=== PATIENT | male | born 1945 | race Hispanic/Latino ===

== ENCOUNTER → 2019-06-19 | Outpatient (CLI) | payer MEDICARE ==
[~2019-06-19] MED LIST: ASPIRIN81 MG PO; ATORVASTATIN CA20 MG PO; DEXILANT60 MG PO; FLOMAX0.4 MG PO; LOSARTAN POTASS50 MG PO; NORCO 10-325 T1 EACH PO; REGADENOSON 0.4 MG/5 ML SYR IV ONE
--- NOTE | 2019-06-19 22:46 | Myoview Stress Test ---
DATE OF STUDY: 06/19/2019 08:08:00 Stress Test - Treadmill ONLY PROCEDURE TITLE: Nuclear stress report. INDICATION: Chest pain. PROCEDURE IN DETAIL: Pharmacologic stress testing was performed with regadenoson per protocol. The heart rate was 47 beats per minute at rest and increased to 103 beats per minute during regadenoson infusion. The resting blood pressure was 149/81 mmHg and increased to 195/96 mmHg, which is a normal response. The resting electrocardiogram demonstrated sinus bradycardia with frequent PVCs. There were no ST-segment changes suggestive of myocardial ischemia. Myocardial perfusion imaging was performed at rest following the injection of 11 mCi of tetrofosmin. At peak pharmacologic effect, the patient was injected with 33 mCi of tetrofosmin. Gated post-stress tomographic imaging was performed. FINDINGS: The overall quality of study is fair. Left ventricular cavity is noted to be normal size on the rest and stress studies. SPECT images demonstrate homogeneous tracer distribution throughout the myocardium. Gated SPECT imaging reveals normal myocardial thickening and wall motion. Overall, left ventricular ejection fraction was calculated to be 74%. IMPRESSION: Myocardial perfusion imaging is normal. Overall, left ventricular systolic function was normal without regional wall motion abnormalities. Maricel Vides MD ABS/MODL /[id number]
== END ==
LOC: NM 08:01
PROVIDERS: ATTEND Internal Medicine Interventional Cardiology
DX: I20.8 Other forms of angina pectoris (principal)
CPT/HCPCS: 78452; 93017; A9502; J2785

== ENCOUNTER 2019-12-29 11:52 | Emergency (ER) | payer MEDICARE, OTHER ==
[~2019-12-29] VITALS: Ht 170.2 cm; Wt 109.8 kg
[~2019-12-29 11:52] MED LIST changes: -REGADENOSON 0.4 MG/5 ML SYR IV ONE
--- NOTE | 2019-12-29 13:16 | Emergency Department Note ---
History of Present Illnes History of Present Illness Chief Complaint: COVID PUI History of Present Illness This is a 74 year old male arrives to the ED with complaints of a cough with phlegm. Patient states symptoms have been present for several days intermittent. Patient denies any shortness of breath. Historian: Patient Arrival Mode: Car Counsel Required: No Onset (how long ago): day(s) Severity: mild Onset quality: gradual Duration (how long): day(s) Timing of current episode: intermittent Progression: waxing and waning Chronicity: new Past Medical/Family History Physician Review I have reviewed the patient's past medical and family history. Any updates have been documented here. Past Medical History Recent Fever: No Clinical Suspicion of Infectio: No New/Unexplained Change in Ment: No Past Medical History: Hypertension, Osteoarthritis Past Surgical History: None Social History Smoking Cessation: Never Smoker Counseling Performed: No Alcohol Use: None Any Illegal Drug Use: No TB Exposure/Symptoms: No Physically hurt or threatened: No Other Any Pre-Existing Lines (PICC,: No Is patient up to date on immun: No Last Flu: OOD Last Pneumovax: OOD Review of Systems Review of Systems Constitutional: Reports no symptoms EENTM: Reports no symptoms Cardiovascular: Reports no symptoms Respiratory: Reports as per HPI, Reports pain with cough Gastrointestinal: Reports no symptoms Genitourinary: Reports no symptoms Musculoskeletal: Reports no symptoms Integumentary: Reports no symptoms Neurological: Reports no symptoms Psychological: Reports no symptoms Endocrine: Reports no symptoms Hematological/Lymphatic: Reports no symptoms Physical Exam Related Data Allergies: Coded Allergies: No Known Drug Allergies (Unverified Allergy, 02/08/15) Triage Vital Signs Vital Signs Date Time Temp Pulse Resp B/P (MAP) Pulse Ox O2 Delivery O2 Flow Rate FiO2 12/29/19 12:14 99.8 63 16 158/83 96 Vital signs reviewed: Yes Physical Exam CONSTITUTIONAL Constitutional: Present well-developed, Present well-nourished HENT HENT: Present normocephalic, Present atraumatic, Present oropharynx clear/moist, Present nose normal HENT L/R: Present left ext ear normal, Present right ext ear normal EYES Eyes: Reports PERRL, Reports conjunctivae normal NECK Neck: Present ROM normal PULMONARY Pulmonary: Present effort normal, Present breath sounds normal CARDIOVASCULAR Cardiovascular: Present regular rhythm, Present heart sounds normal, Present capillary refill normal, Present normal rate GASTROINTESTINAL Abdominal: Present soft, Present nontender, Present bowel sounds normal GENITOURINARY Genitourinary: Present exam deferred SKIN Skin: Present warm, Present dry MUSCULOSKELETAL Musculoskeletal: Present ROM normal NEUROLOGICAL Neurological: Present alert, Present oriented x 3, Present no gross motor or sensory deficits PSYCHOLOGICAL Psychological: Present mood/affect normal, Present judgement normal Results Laboratory Laboratory Laboratory Tests Test 12/29/19 11:47 Imaging Imaging results reviewed: Yes Assessment & Plan Medical Decision Making MDM 74-year-old male arrives to the ED with complaints of a cough, congestion. Patient states symptoms happened after he was sitting in front of an air- conditioner and eating ice cream. Patient well-appearing, equal breath sounds bilaterally. Patient's oxygen saturation 100% on room air. Patient's chest x-ray unremarkable. Coded swab was sent. Patient instructed to socially isolate in the interim. Assessment & Plan Final Impression: (1) URI (upper respiratory infection) Depart Disposition: HOME, SELF-CARE Last Vital Signs Date Time Temp Pulse Resp B/P (MAP) Pulse Ox O2 Delivery O2 Flow Rate FiO2 12/29/19 12:14 99.8 63 16 158/83 96 Home Meds Active Scripts Azithromycin (Z-BERENICE) 250 Mg Tablet, 1 PKG PO DIRECTED, #1 PKG 0 Refills Prov:PADMINI MURILLO DO 12/29/19 Reported Medications Atorvastatin Calcium (ATORVASTATIN CALCIUM) 20 Mg Tablet, 20 MG PO 2100, TAB 03/03/15 Aspirin (ASPIRIN) 81 Mg Tab.chew, 81 MG PO DAILY 03/03/15 Losartan Potassium (LOSARTAN POTASSIUM) 50 Mg Tablet, 50 MG PO DAILY 03/03/15 Dexlansoprazole (DEXILANT) 60 Mg Cap., 60 MG PO DAILY THERAPEUTIC INTERCHANGE WITH PROTONIX PER [facility] 03/03/15 Tamsulosin Hcl* (FLOMAX*) 0.4 Mg Cap, 0.4 MG PO DAILY, #30 CAP 03/03/15 Hydrocodone Bit/Acetaminophen (NORCO 10-325 TABLET) 1 Each Tablet, 1 TAB PO TID PRN for PAIN 03/03/15 PADMINI MURILLO DO Dec 29, 2019 13:16
--- NOTE | 2019-12-29 13:20 | Diagnostic Imaging Report ---
X-ray chest AP portable History: Cough phlegm Comparison: None Findings: Central airways unremarkable. Heart size borderline. Mediastinal contours otherwise unremarkable. No pleural effusion. No pneumothorax. Minimal discoid atelectasis left lung base. Visualized skeleton unremarkable. Upper abdomen unremarkable. Impression: No significant acute cardiopulmonary disease. Signed by: Cheikh Cline MD on 12/29/2019 1:17 PM
[2019-12-29] MEDS ORDERED: AZITHROMYCIN250 MG PO (13:29)
== END 2019-12-29 13:33 | disposition home or self-care (01) ==
LOC: ER 11:52
DX: R05 Cough (principal); U07.1 COVID-19; J06.9 Acute upper respiratory infection, unspecified; I10 Essential (primary) hypertension
CPT/HCPCS: 71045; 87635; 99282

== ENCOUNTER → 2021-01-11 | Outpatient (CLI) | payer MEDICARE ==
[~2021-01-11] MED LIST changes: +AZITHROMYCIN250 MG PO; +REGADENOSON 0.4 MG/5 ML SYR IV ONE
== END ==
LOC: NM 09:19
PROVIDERS: ATTEND Internal Medicine
DX: R07.9 Chest pain, unspecified (principal); I25.10 Atherosclerotic heart disease of native coronary artery without angina pectoris; I73.9 Peripheral vascular disease, unspecified; Z86.73 Personal history of transient ischemic attack (TIA), and cerebral infarction without residual deficits
CPT/HCPCS: 78452; 93017; 93306; A9502; J2785